=== PATIENT | male | born 1990 | race African-American/Black ===

== ENCOUNTER 2016-10-27 23:01 | Emergency (ER) | payer SELFPAY ==
[~2016-10-27] VITALS: Ht 188 cm; Wt 180.0 kg
[2016-10-28] MEDS ORDERED: KETOROLAC 30MG/ML VIAL IM ONE (02:00)
[2016-10-28 02:59] VITALS: BP 142/84
== END 2016-10-28 03:49 | disposition home or self-care (01) ==
LOC: ER 23:01
DX: M79.672 Pain in left foot (principal); F17.200 Nicotine dependence, unspecified, uncomplicated
CPT/HCPCS: 96372; 99283; J1885

== ENCOUNTER 2018-11-08 19:01 | Emergency (ER) | payer OTHER ==
[~2018-11-08] VITALS: Ht 185.4 cm; Wt 160.0 kg
[2018-11-08] MEDS ORDERED: SODIUM CHLORIDE 0.9% 1000ML BAG (SEPSIS BOLUS) IV ONE (20:30)
[2018-11-08] MEDS ORDERED: VANCOMYCIN 1 G PREMIX 200 ML IV ONE (20:30)
[2018-11-08 20:47] LABS: BASOPHILS % 0.6 % (0.0-2.0); EOSINOPHILS % 3.4 % (0.0-5.0); HEMATOCRIT. 44.8 % (42.0-52.0); HEMOGLOBIN. 15.7 g/dL (14.0-18.0); LYMPHOCYTES % 17.9 % (20.0-50.0); MEAN CORPUSCULAR HEMOGLOBIN 33.6 pg (28.0-32.0); MEAN CORPUSCULAR VOLUME 95.8 fL (80.0-94.0); MEAN PLATELET VOLUME 10.6 fl (7.4-10.4); MONOCYTES % 5.3 % (2.0-8.0); NEUTROPHILS % 72.8 % (40.0-76.0); PLATELET 191 x1000/uL (130-400); RED BLOOD CELL COUNT 4.68 mill/uL (4.7-6.1); RED CELL DISTRIBUTION WIDTH 12.9 % (11.6-14.6)
[2018-11-08 20:51] LABS: CHLORIDE 107 mEq/L (98-107)
[2018-11-08 22:53] VITALS: BP 145/84
== END 2018-11-08 22:53 | disposition home or self-care (01) ==
LOC: ER 19:01
DX: K65.0 Generalized (acute) peritonitis (principal); F17.200 Nicotine dependence, unspecified, uncomplicated
CPT/HCPCS: 36415; 80053; 83605; 85025; 96365; 96366; 99283; J3370; J7030

== ENCOUNTER 2018-11-09 17:40 | Emergency (ER) | payer OTHER ==
[~2018-11-09] VITALS: Ht 185.4 cm; Wt 163.0 kg
[2018-11-09] MEDS ORDERED: LIDOCAINE 1%/EPI 1:100,000 10 ML VIAL IJ ONE (20:30)
[2018-11-09] MEDS ORDERED: BACITRACIN ZINC OINT UDPKT TOP ONE (20:30)
[2018-11-09] MEDS ORDERED: BACITRACIN 15GM TUBE TOP NR (20:45)
[2018-11-09] MEDS ORDERED: LIDOCAINE HCL/EPINEPHRINE 1%-EPI 1:100,000 20 ML VIAL INFIL NR (20:45)
[2018-11-09] MEDS ORDERED: HYDROCODONE/ACETAMINOPHEN 5/325MG TABLET PO ONE (21:15)
[2018-11-09] MEDS ORDERED: IBUPROFEN 600MG TABLET PO ONE (21:30)
[2018-11-09 21:43] VITALS: BP 128/75
== END 2018-11-09 21:45 | disposition home or self-care (01) ==
LOC: ER 17:40
DX: L02.211 Cutaneous abscess of abdominal wall (principal); F17.200 Nicotine dependence, unspecified, uncomplicated
CPT/HCPCS: 10060; 99283; J3490